=== PATIENT | female | born 1940 | race Caucasian/White ===

== ENCOUNTER 2024-08-23 09:28 | Day surgery (SDC) | payer MEDICARE, OTHER, SELFPAY ==
[2024-08-23 10:11] LABS: Glucose - Point of Care 118 mg/dl (70-99)
[2024-08-23 10:14] LABS: INR 1.99; PT 22.8 Sec (11.4-14.6)
== END 2024-08-23 11:56 | disposition home or self-care (01) ==
LOC: CATH 09:28
PROVIDERS: ATTENDING PHYSICIAN Internal Medicine Cardiovascular Disease; FAMILY PHYSICIAN Physician Assistant; OTHER PHYSICIAN Internal Medicine Cardiovascular Disease
DX: I48.91 Unspecified atrial fibrillation (principal); I08.3 Combined rheumatic disorders of mitral, aortic and tricuspid valves; I51.3 Intracardiac thrombosis, not elsewhere classified; I31.39 Other pericardial effusion (noninflammatory); N18.4 Chronic kidney disease, stage 4 (severe); I12.9 Hypertensive chronic kidney disease with stage 1 through stage 4 chronic kidney disease, or unspecified chronic kidney disease; Z79.01 Long term (current) use of anticoagulants; Z79.899 Other long term (current) drug therapy
CPT/HCPCS: 93312; 93320; 93325; 82962; 85610

== ENCOUNTER 2024-12-06 06:28 | Day surgery (SDC) | payer MEDICARE, OTHER, SELFPAY ==
[2024-12-06 07:36] VITALS: BMI 29.7
[2024-12-06 07:39] LABS: Glucose - Point of Care 151 mg/dl (70-99)
[2024-12-06] MEDS: ELIQUIS 2.5 MG PO (08:16)
== END 2024-12-06 09:30 ==
LOC: CATH 06:28
PROVIDERS: ATTENDING PHYSICIAN Internal Medicine Cardiovascular Disease; FAMILY PHYSICIAN Physician Assistant; OTHER PHYSICIAN Internal Medicine Cardiovascular Disease
DX: I08.3 Combined rheumatic disorders of mitral, aortic and tricuspid valves (principal); I70.0 Atherosclerosis of aorta; I48.91 Unspecified atrial fibrillation; I50.32 Chronic diastolic (congestive) heart failure; I11.0 Hypertensive heart disease with heart failure; E11.9 Type 2 diabetes mellitus without complications
CPT/HCPCS: 93312; 93320; 93325; 82962